=== PATIENT | female | born 1960 | race Caucasian/White ===

== ENCOUNTER 2018-06-14 20:56 | Outpatient (CLI) | payer SELFPAY | END 2018-06-14 20:57 | disposition EMS.NT | LOC: EMS 20:56 | PROVIDERS: ATTEND Surgery | DX: R07.9 Chest pain, unspecified (principal); Z53.20 Procedure and treatment not carried out because of patient's decision for unspecified reasons ==

== ENCOUNTER 2019-02-22 16:30 | Outpatient (CLI) | payer SELFPAY | END 2019-02-22 16:31 | disposition short-term general hospital (02) | LOC: EMS 16:30 | PROVIDERS: ATTEND Surgery | DX: R07.9 Chest pain, unspecified (principal); R06.02 Shortness of breath; R61 Generalized hyperhidrosis; R11.0 Nausea; R55 Syncope and collapse | CPT/HCPCS: A0425; A0427 ==

== ENCOUNTER 2020-10-07 12:39 | Outpatient (CLI) | payer OTHER ==
--- NOTE | 2020-10-07 18:37 | XRAY Report ---
PROCEDURE: Shoulder 3 View LT INDICATIONS: LEFT SHOULDER BICEPS TENDINITIS TECHNIQUE: 3 views of the shoulder were acquired. COMPARISON: None. FINDINGS: Bones: No fractures or dislocations. No suspicious bony lesions. Visualized ribs appear intact. M ild degenerative changes of the acromioclavicular joint. The glenohumeral joint is intact. Soft tissues: Globular calcifications overlying the greater tuberosity. IMPRESSION: No acute osseous abnormality. Mild degenerative changes of the common clavicular joint. Calcifications overlying the greater tuberosity suggestive of hydroxyapatite deposition which may be seen in the setting of calcific tendinitis of the rotator cuff. Reviewed by: Dov Boudreaux DO on 10/07/2020 5:35 PM [facility] Approved by: Dov Boudreaux DO on 10/07/2020 5:35 PM [facility] Station ID: [id number]
== END 2020-10-07 23:59 | disposition home or self-care (01) ==
LOC: DI.S 12:39
PROVIDERS: ATTEND Emergency Medicine
DX: M19.012 Primary osteoarthritis, left shoulder (principal); R93.6 Abnormal findings on diagnostic imaging of limbs

== ENCOUNTER 2022-06-27 09:51 | Outpatient (CLI) | payer BC ==
[2022-06-27 14:53] LABS: ESTIMATED AVERAGE GLUCOSE 114 mg/dL (70-100); HEMOGLOBIN A1c% 5.6 % (4.27-6.07)
[2022-06-27 14:57] LABS: BASOPHILS % (AUTO) 0.5 %; EOSINOPHILS # (AUTO) 0.2 10^3/uL (0.0-0.7); EOSINOPHILS % (AUTO) 2.8 %; HGB - HEMOGLOBIN 14.1 g/dL (12.0-16.0); LYMPHOCYTES # (AUTO) 2.4 10^3/uL (1.5-3.5); MEAN CORPUSCULAR HEMOGLOBIN 30.8 pg (27.0-31.0); MEAN CORPUSCULAR VOLUME 96.1 fL (81.0-99.0); MEAN PLATELET VOLUME 12.7 fL (7.9-10.8); MONOCYTES # (AUTO) 0.4 10^3/uL (0.0-1.0); MONOCYTES % (AUTO) 7.1 %; NEUTROPHILS # (AUTO) 2.8 10^3/uL (1.5-6.6); NEUTROPHILS % (AUTO) 48.3 %; PLT - PLATELET COUNT 173 10^3/uL (130-450); RED BLOOD COUNT 4.58 10^6/uL (4.20-5.40); RED CELL DISTRIBUTION WIDTH 13.6 % (12.0-15.0); WHITE BLOOD COUNT 5.8 x10^3/uL (4.8-10.8)
[2022-06-27 15:22] LABS: THYROID STIMULATING HORMONE 1.96 uIU/mL (0.34-5.60)
[2022-06-27 15:25] LABS: ALBUMIN 3.7 g/dL (3.2-5.5); ALBUMIN/GLOBULIN RATIO 1.2 (1.0-2.2); ALKALINE PHOSPHATASE 59 IU/L (42-121); ALT ALANINE AMINOTRANSFERASE 17 IU/L (10-60); AST ASPARTATE AMINOTRANSFERASE 21 IU/L (10-42); BILIRUBIN,TOTAL 0.8 mg/dL (0.2-1.0); BUN - BLOOD UREA NITROGEN 20 mg/dL (6-20); CALCIUM 9.7 mg/dL (8.5-10.3); CARBON DIOXIDE - CO2 30 mmol/L (21-32); CHLORIDE 106 mmol/L (101-111); CHOL/HDL RATIO 3.5 (<4.4); CHOLESTEROL 213 mg/dL; CREATININE 0.7 mg/dL (0.4-1.0); GFR - MDRD 85 (>89); GLUCOSE 106 mg/dL (70-100); HDL CHOLESTEROL 61 mg/dL; LDL CHOLESTEROL,CALCULATED 129 mg/dL; LDL/HDL RATIO 2.1 (<4.4); POTASSIUM 4.1 mmol/L (3.5-5.0); SODIUM 142 mmol/L (135-145); TOTAL PROTEIN 6.8 g/dL (6.7-8.2); TRIGLYCERIDES 114 mg/dL; VLDL CHOLESTEROL 23 mg/dL
== END 2022-06-27 09:52 | disposition home or self-care (01) ==
LOC: LAB.S 09:51
PROVIDERS: ATTEND Nurse Practitioner Acute Care
DX: Z00.00 Encounter for general adult medical examination without abnormal findings (principal); Z13.220 Encounter for screening for lipoid disorders; Z13.1 Encounter for screening for diabetes mellitus; E03.9 Hypothyroidism, unspecified
CPT/HCPCS: 36415; 80053; 80061; 83036; 83721; 84443; 85025

== ENCOUNTER 2022-07-02 07:51 | Outpatient (CLI) | payer BC ==
--- NOTE | 2022-07-10 12:41 | Mammography Report ---
BILATERAL DIGITAL SCREENING MAMMOGRAM 3D/2D WITH EXAGGERATED CC: 07/02/2022 CLINICAL: Routine screening. No prior exams were available for comparison. There are scattered areas of fibroglandular density in both breasts (category b / 25%-50% glandular t issue). There are benign post operative findings and biopsy clip in both breasts. No significant masses, calcifications, or other findings are seen in either breast. IMPRESSION: BENIGN There is no mammographic evidence of malignancy. A 1 year screening mammogram is recommended. Based on the Tyrer Cuzick model (a risk assessment model) the patients lifetime risk is 6.2% and her 10 year risk is 2.7%. According to the ACR, ACS, and NCCN guidelines, an annual breast MRI exam danny g with mammogram is recommended if the patients lifetime risk is 20% or greater. This exam was interpreted at Station ID: [id number]. NOTE: For mammograms, a report in lay terms will be sent to the patient. Approximately 15% of breast malignancies will not be visualized mammographically. In the management of a palpable breast mass, a negative mammogram must not discourage biopsy of a clinically suspicious lesion. Electronically Signed By: Yazan Godfrey M.D. attete/gusrad:07/09/2022 08:04:46 ACR BI-RADS Category 2: Benign Finding(s) 3342F PARENCHYMAL PATTERN: (A) - The breast(s) demonstrate(s) scattered fibroglandular densities. BI-RADS CATEGORY: (2) - 2 RECOMMENDATION: (ANNUAL) - Recommend routine annual screening mammography. [id number] 1 year screening LATERALITY: (B)
== END 2022-07-02 07:52 | disposition home or self-care (01) ==
LOC: DI.S 07:51
PROVIDERS: ATTEND Nurse Practitioner Acute Care
DX: Z12.31 Encounter for screening mammogram for malignant neoplasm of breast (principal)

== ENCOUNTER 2022-07-08 08:42 | Outpatient (CLI) | payer BC ==
--- NOTE | 2022-07-08 10:44 | XRAY Report ---
PROCEDURE: Wrist 2 View RT INDICATIONS: PAIN IN RIGHT WRIST TECHNIQUE: 3 views of the wrist were acquired. COMPARISON: None. FINDINGS: Bones: No fractures or dislocations. No suspicious bony lesions. Soft tissues: No suspicious soft tissue calcifications. IMPRESSION: No acute osseous abnormalities. If clinical symptoms persist or clinical suspicion for injury is high , a repeat examination 7-10 days or advanced imaging such as CT or MRI would be helpful. Reviewed by: Marycruz Carroll MD on 07/08/2022 10:42 AM [facility] Approved by: Marycruz Carroll MD on 07/08/2022 10:42 AM [facility] Station ID: [id number]
== END 2022-07-08 09:39 | disposition home or self-care (01) ==
LOC: DI.S 08:42
PROVIDERS: ATTEND Nurse Practitioner Acute Care
DX: M25.531 Pain in right wrist (principal)

== ENCOUNTER 2022-08-25 09:40 | Outpatient (CLI) | payer BC ==
--- NOTE | 2022-08-25 11:27 | MRI Report ---
PROCEDURE: WRIST WO - RT INDICATIONS: RIGHT WRIST PAIN TECHNIQUE: Noncontrast coronal proton density fast spin echo and T2 fast spin echo with fat saturation; coronal 3-D gradient echo, axial T1 spin echo and T2 fast spin echo with fat saturation, sagittal T1 spin ech o through the wrist. COMPARISON: None. FINDINGS: Image quality: Excellent. Bones and cartilage: The carpal bones are normally aligned. No bone marrow contusions or fractures. No evidence for avascular necrosis. Mild wrist joint osteoarthritic changes are with joint space na rrowing, subchondral sclerosis and subcortical cyst formation. Carpal ligaments: T2 hyperintense signal within thickened scapholunate ligament is seen suggestive of low-grade intrasubstance partial thickness tear. No full-thickness cuff ligament rupture. The lunotr iquetral ligament is intact. In the absence of intra-articular contrast, the extrinsic carpal ligamen ts are not well identified. On sagittal images, the pisohamate ligament appears intact. Triangular fibrocartilage complex: The triangular fibrocartilage appears intact. The adjacent menis clementina homolog appears normal in the absence of intra-articular contrast. The extensor carpi ulnaris te ndon is thickened with mild surrounding edema at the level of ulnar styloid and triquetrum. Tendons and soft tissues: The carpal tunnel structures appear normal, including the median nerve. T he ulnar nerve appears normal within Guyon's canal. All six extensor tendon compartments demonstrate normal morphology, without pathologic tendon sheath fluid. No soft tissue ganglion cysts. IMPRESSION: 1. Mild wrist joint osteoarthritis. No wrist fracture or dislocation. No evidence of avascular necros is. 2. Suggestion of low-grade intrasubstance partial thickness tear involving scapholunate ligament. No full-thickness ligament rupture. The lunotriquetral ligament is intact. 3. Tendinosis involving extensor carpi ulnaris tendon at the level of scaphoid and triquetrum. 4. Rest of the extensor and flexor tendons are grossly intact. Reviewed by: Fortino Bruce MD on 08/25/2022 10:26 AM [facility] Approved by: Fortino Bruce MD on 08/25/2022 10:26 AM [facility] Station ID: [id number]
== END 2022-08-25 09:41 | disposition home or self-care (01) ==
LOC: DI 09:40
PROVIDERS: ATTEND Nurse Practitioner Acute Care
DX: M19.031 Primary osteoarthritis, right wrist (principal); M67.833 Other specified disorders of tendon, right wrist

== ENCOUNTER 2023-06-16 08:53 | Outpatient (CLI) | payer BC ==
[2023-06-16 15:19] LABS: BASOPHILS % (AUTO) 0.6 %; EOSINOPHILS # (AUTO) 0.1 10^3/uL (0.0-0.7); EOSINOPHILS % (AUTO) 2.1 %; HGB - HEMOGLOBIN 13.7 g/dL (12.0-16.0); LYMPHOCYTES # (AUTO) 2.8 10^3/uL (1.5-3.5); LYMPHOCYTES % (AUTO) 44.3 %; MEAN CORPUSCULAR HEMOGLOBIN 30.6 pg (27.0-31.0); MEAN CORPUSCULAR HGB CONC 31.9 g/dL (32.0-36.0); MEAN CORPUSCULAR VOLUME 96.2 fL (81.0-99.0); MEAN PLATELET VOLUME 13.5 fL (7.9-10.8); MONOCYTES # (AUTO) 0.5 10^3/uL (0.0-1.0); MONOCYTES % (AUTO) 7.3 %; NEUTROPHILS # (AUTO) 2.9 10^3/uL (1.5-6.6); NEUTROPHILS % (AUTO) 45.5 %; PLT - PLATELET COUNT 151 10^3/uL (130-450); RED BLOOD COUNT 4.47 10^6/uL (4.20-5.40); RED CELL DISTRIBUTION WIDTH 13.2 % (12.0-15.0); WHITE BLOOD COUNT 6.3 x10^3/uL (4.8-10.8)
[2023-06-16 15:39] LABS: ALBUMIN 4.1 g/dL (3.2-5.5); ALBUMIN/GLOBULIN RATIO 1.6 (1.0-2.2); ALKALINE PHOSPHATASE 55 IU/L (42-121); ALT ALANINE AMINOTRANSFERASE 14 IU/L (10-60); AST ASPARTATE AMINOTRANSFERASE 20 IU/L (10-42); BILIRUBIN,TOTAL 0.4 mg/dL (0.2-1.0); BUN - BLOOD UREA NITROGEN 24 mg/dL (6-20); CALCIUM 9.4 mg/dL (8.5-10.3); CARBON DIOXIDE - CO2 29 mmol/L (21-32); CHLORIDE 105 mmol/L (101-111); CHOL/HDL RATIO 3.8 (<4.4); CHOLESTEROL 171 mg/dL; CREATININE 0.7 mg/dL (0.6-1.3); GFR - MDRD 85 (>89); GLUCOSE 103 mg/dL (74-104); HDL CHOLESTEROL 45 mg/dL; LDL CHOLESTEROL,CALCULATED 100 mg/dL; LDL/HDL RATIO 2.2 (<4.4); POTASSIUM 4.3 mmol/L (3.5-4.5); SODIUM 138 mmol/L (135-145); TOTAL PROTEIN 6.6 g/dL (6.4-8.9); TRIGLYCERIDES 130 mg/dL (48-352); VLDL CHOLESTEROL 26 mg/dL
[2023-06-16 15:47] LABS: THYROID STIMULATING HORMONE 4.13 uIU/mL (0.34-5.60)
== END 2023-06-16 08:54 | disposition home or self-care (01) ==
LOC: LAB.S 08:53
PROVIDERS: ATTEND Nurse Practitioner Acute Care
DX: E03.9 Hypothyroidism, unspecified (principal); Z13.220 Encounter for screening for lipoid disorders
CPT/HCPCS: 36415; 80053; 80061; 83721; 84443; 85025

== ENCOUNTER 2023-07-06 08:55 | Outpatient (CLI) | payer BC ==
--- NOTE | 2023-07-13 16:57 | Mammography Report ---
BILATERAL DIGITAL SCREENING MAMMOGRAM 3D/2D: 07/06/2023 CLINICAL: Routine screening. Comparison is made to exams dated: 07/02/2022 mammogram - [facility], 12/18/2020 [facility], and 11/02/2019 mammogram - [facility]. There are scattered areas of fibroglandular density in both breasts (category b / 25%-50% glandular t issue). There are benign post operative findings and biopsy clip in both breasts. No significant masses, calcifications, or other findings are seen in either breast. There has been no significant interval change. IMPRESSION: BENIGN There is no mammographic evidence of malignancy. A 1 year screening mammogram is recommended. Based on the Tyrer Cuzick model (a risk assessment model) the patient's lifetime risk is 6.0% and her 10 year risk is 2.7%. According to the ACR, ACS, and NCCN guidelines, an annual breast MRI exam danny g with mammogram is recommended if the patient's lifetime risk is 20% or greater. This exam was interpreted at Station ID: [id number]. NOTE: For mammograms, a report in lay terms will be sent to the patient. Approximately 15% of breast malignancies will not be visualized mammographically. In the management of a palpable breast mass, a negative mammogram must not discourage biopsy of a clinically suspicious lesion. Electronically Signed By: Em salmon/lisa:07/13/2023 16:18:37 letter sent: No_Letter ACR BI-RADS Category 2: Benign Finding(s) 3342F PARENCHYMAL PATTERN: (A) - The breast(s) demonstrate(s) scattered fibroglandular densities. BI-RADS CATEGORY: (2) - 2 Mammogram [id number] 1 year screening LATERALITY: (B)
== END 2023-07-06 08:56 | disposition home or self-care (01) ==
LOC: DI.S 08:55
PROVIDERS: ATTEND Nurse Practitioner Acute Care
DX: Z12.31 Encounter for screening mammogram for malignant neoplasm of breast (principal); R92.323 Mammographic fibroglandular density, bilateral breasts

== ENCOUNTER 2023-07-28 09:12 | Outpatient (CLI) | payer BC ==
--- NOTE | 2023-07-28 09:18 | CARDIAC PROCEDURE NOTE ---
Stress Test Report Service Date: 07/28/23 Service Time: 09:30 Ordering Provider: Ana Maria Martel ARNP Indication for Test: Cardiac risk stratification. Significant Medical History: Wendi is a generally healthy 63-year-old woman with past medical history notable for hypothyroidism and mild chronic obstructive lung disease, likely related to long-term cigarette smoking at a moderate level. She has been trying to quit altogether and is currently down to approximately 3 cigarettes a day. She was seen recently for a full evaluation and reported experiencing primarily nocturnal symptoms that include palpitations and what she describes as a sensation of her "heart yawning", that has been present off-and-on over about 5 years. She denies associated symptoms, including lightheadedness, chest pain or dyspnea. During daytime hours she is quite vigorous and active. Though she does not exercise very much for conditioning, she has been quite involved in a long-term home remodeling project, that has involved her doing things as str enuous as putting up shingles, drywall and exterior stone. She feels that her stamina is intact and she has no cardiovascular limitation during these activities. She does report that in her 20s she was diagnosed with mitral valve prolapse, though this has not been an active issue in the interim years. Recent fasting lipids included: Total cholesterol 171, HDLc 45, LDLc 100, TG 130. Cardiac Risk Factors: Positive for significant tobacco smoking history (1/2-1 ppd for 42 yrs, quit ~2 months ago); negative for hypertension, hyperlipidemia, diabetes and family history of CAD. Type of Stress Test: ETT with Echocardiography Procedure: -Exercise Treadmill Test- After signing informed consent, the patient underwent echo imaging at rest and then performed treadmill exercise using a Jozef protocol. The patient exercised for 6 minutes 51 seconds and achieved a peak heart rate of 138 (87 percent predicted maximum heart rate for age), and an estimated workload of 8.4 METS. The test was terminated due to fatigue/shortness of breath. Resting heart rate: 69 Peak heart rate: 138 Normal response to exercise. Resting BP: 120/83 Peak BP: 164/77 Normal response of systolic and diastolic BPs to exercise. Oxygen saturation remained >96% throughout the study. Rhythm during exercise: Sinus rhythm throughout, without ectopy. Symptoms: No description of any chest pressure/discomfort/pain, nor palpitations. EKG at rest showed normal sinus rhythm, normal in all aspects including normal ST/T pattern. EKG at peak stress showed J-point depression with upsloping ST segments, NOT meeting diagnostic EKG criteria for ischemia. In Recovery HR and BP rapidly/normally returned fully to resting levels by 5:00. Echo imaging, performed at rest and with stress, will be reported separately. Medhat Dixon MD, was present throughout this treadmill stress study and supervised it in its entirety. Summary: 1) Exercise tolerance modestly above average for age as evidenced by HERMELINDO of -6%. 2) Normal resting EKG. 3) Adequate level of exercise was achieved on this treadmill stress test. 4) Normal BP response to exercise. 5) Room air oxygen saturation remained >96% throughout the protocol. 6) No ischemic changes by EKG criteria were seen at peak stress. 7) Echo image interpretation reveals normal left ventricular size, wall thickness and systolic function, with appropriate hyperdynamic augmentation of all segments with exercise, indicating no evidence of prior infarct or inducible ischemia. No significant valvular abnormality (including no evidence of mitral valve prolapse/myxomatous changes) or elevation of estimated pulmonary artery systolic pressure seen on screening study. See separate report for more details. Conclusions and Recommendations: 1) This is a fully reassuring treadmill stress echocardiogram study, with no symptom, EKG or echocardiographic evidence of inducible ischemia. 2) Wendi is encouraged to redouble her efforts to quit smoking altogether and to remain physically active, including a goal of 150 minutes of vigorous walking weekly.
== END 2023-07-28 09:13 | disposition home or self-care (01) ==
LOC: DI 09:12
PROVIDERS: ATTEND Nurse Practitioner Acute Care
DX: R00.2 Palpitations (principal); F17.210 Nicotine dependence, cigarettes, uncomplicated
CPT/HCPCS: 93350

== ENCOUNTER 2024-01-12 08:00 | Outpatient (CLI) | payer BC ==
--- NOTE | 2024-01-12 15:14 | XRAY Report ---
Chest 2V HISTORY: ACUTE COUGH COMPARISON: None. TECHNIQUE: 2 views of the chest are submitted for interpretation. FINDINGS/IMPRESSION: No pleural effusion or pneumothorax. No pulmonary edema or focal consolidation. Normal cardiomediastinal silhouette. Reviewed by: Lydia Monae MD on 01/12/2024 3:13 PM PDT Approved by: Lydia Monae MD on 01/12/2024 3:13 PM PDT Station ID: [id number]
== END 2024-01-12 23:59 | disposition home or self-care (01) ==
LOC: DI.S 08:00
PROVIDERS: ATTEND Registered Nurse
DX: R05.1 Acute cough (principal); J06.9 Acute upper respiratory infection, unspecified